=== PATIENT | female | born 1950 | race Hispanic/Latino ===

== ENCOUNTER 2018-06-17 23:19 | Emergency (ER) | payer MEDICARE ==
[2018-06-17 23:48] VITALS: PULSE 68; RESP 18; TEMP 98.1; O2SAT 100
[2018-06-18] MEDS ORDERED: Ofloxacin Ophth 0.3% Soln OU STA (00:11)
--- NOTE | 2018-06-18 00:15 | ED PDOC ---
HPI: Eye Injury/Pain Time Seen by Provider: 06/18/18 00:00 Chief Complaint (Nursing): Eye Problem Chief Complaint (Provider): bilateral eye irritation History Per: Patient History/Exam Limitations: no limitations Onset/Duration Of Symptoms: Days (1) Current Symptoms Are (Timing): Still Present Associated Symptoms: Discharge From Eye Additional Complaint(s): 68 y/o female presents for evaluation of bilateral eye irritation x 1 day. Patient states she is visiting her family and granddaughter is being treated for pink eye. Patient states this morning she woke up and left eye was crusted shut, with associated redness and drainage. Symptoms spread to right eye. Denies fever, headache, dizziness, vision changes. Past Medical History Reviewed: Historical Data, Nursing Documentation, Vital Signs Vital Signs: Last Vital Signs Temp 98.1 F 06/17/18 23:47 Pulse 68 06/17/18 23:47 Resp 18 06/17/18 23:47 BP 177/77 H 06/17/18 23:47 Pulse Ox 100 06/17/18 23:47 - Medical History PMH: Diabetes, HTN, Hypercholesterolemia - Surgical History Surgical History: Tonsillectomy - Family History Family History: States: No Known Family Hx - Home Medications Home Medications: Ambulatory Orders Medication Instructions Recorded Clindamycin [Cleocin] 300 mg PO TID #21 cap 06/18/18 Ofloxacin Ophth 0.3% [Ocuflox 2 drop OU ASDIR 7 Days bottle 06/18/18 Ophth 0.3%] - Allergies Allergies/Adverse Reactions: Allergies Allergy/AdvReac Type Severity Reaction Status Date / Time No Known Allergies Allergy Verified 06/17/18 23:47 Review of Systems ROS Statement: Except As Marked, All Systems Reviewed And Found Negative Eyes: Positive for: Conjunctivae Inflammation, Redness Physical Exam - Reviewed Nursing Documentation Reviewed: Yes Vital Signs Reviewed: Yes - Physical Exam Appears: Positive for: Well, Non-toxic, No Acute Distress Head Exam: Positive for: ATRAUMATIC, NORMAL INSPECTION, NORMOCEPHALIC Eye Exam: Positive for: EOMI, PERRL, Periorbital swelling (mild erythema bilateral inferior orbital aspects), Conjunctival injection (bilaterally. chemosis inferior aspect right eye. yellow drainage bilateral eyes. ). 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 Warm compresses Patient demonstrates full understanding of discharge instructions Patient requires no further intervention in the ED nad is stable for discharge at this time Return precautions given Disposition - Clinical Impression Clinical Impression: Conjunctivitis - Patient ED Disposition Is Patient to be Admitted: No Counseled Patient/Family Regarding: Diagnosis, Need For Followup, Rx Given - Disposition Referrals: José Can MD [Staff Provider] - Disposition: Routine/Home Disposition Time: 01:13 Condition: IMPROVED Prescriptions: Clindamycin [Cleocin] 300 mg PO TID #21 cap Ofloxacin Ophth 0.3% [Ocuflox Ophth 0.3%] 2 drop OU ASDIR 7 Days bottle Instructions: Conjunctivitis ([place]) Forms: [facility] (Mauritian)
[2018-06-18 07:31] VITALS: BP 160/80
== END 2018-06-18 01:40 | disposition home or self-care (01) ==
LOC: H.ER 23:19
DX: H10.9 Unspecified conjunctivitis (principal); E11.9 Type 2 diabetes mellitus without complications; I10 Essential (primary) hypertension